=== PATIENT | female | born 1965 | race Caucasian/White ===

== ENCOUNTER 2022-07-29 07:43 | Day surgery (SDC) | payer OTHER ==
[2022-07-29] VITALS (9 sets, daily range): BP systolic 131–149; BP diastolic 81–93
[~2022-07-29] VITALS: Ht 162.6 cm; Wt 77.4 kg
[~2022-07-29 07:43] MED LIST: ALBU8HFA INH; BECL10.62 INH; BUPR300T86 PO; ESTR1TAB28 PO; FINA1TAB17 PO; PROG100C11 PO; famotidine 20mg tablet PO ONE; oxymetazoline 15 ML nasal spray NS ONE; ringers solution, lacted 1,000 ML IV SCH; tranexamic acid inj. 1,000 MG in normal saline IV soln 100ML IV ONE
[2022-07-29] MEDS ORDERED: fentaNYL/PF 50MCG/1 ML 2ML syringe ONE ×2 (09:00→10:07)
[2022-07-29] MEDS ORDERED: salt irrigation nasal spray 45 ML SPRAY NS ONE (09:00)
[2022-07-29] MEDS ORDERED: midazolam 1 mg/ML 2ml injection ONE (09:01)
[2022-07-29] MEDS ORDERED: sevoflurane 250ml liquid IH ONE (09:07)
[2022-07-29] MEDS ORDERED: ondansetron/PF 4mg/2ml inj IV PRN (09:10)
[2022-07-29] MEDS ORDERED: ringers solution, lacted 1,000 ML IV SCH (09:10)
[2022-07-29] MEDS ORDERED: morphine 2 MG/ML inj. syringe IV PRN (09:10)
[2022-07-29] MEDS ORDERED: meperidine/PF 25mg/ml syringe IV PRN ×3 (09:10)
[2022-07-29] MEDS ORDERED: morphine 4 MG/ML inj SYRINge IV PRN (09:10)
[2022-07-29] MEDS ORDERED: proCHLORperazine 10 MG/2 ml inj IV PRN (09:10)
[2022-07-29] MEDS ORDERED: cocaine 4% topical solution 4ml bottle TP ONE (09:40)
[2022-07-29] MEDS ORDERED: mupirocin 2% ointment 22GM TP ONE (09:42)
[2022-07-29] MEDS ORDERED: oxymetazoline 15 ML nasal spray NS ONE (09:43)
[2022-07-29] MEDS ORDERED: LIDOcaine 1% W/epiNEPHrine 1:100,000 20ml vial IJ ONE (09:44)
[2022-07-29] MEDS ORDERED: LIDOcaine 1% W/epiNEPHrine 1:100,000 20ml vial ONE (09:45)
[2022-07-29] MEDS ORDERED: LIDOcaine 2% (20mg/ml) 5ml vial ONE (10:31)
[2022-07-29] MEDS ORDERED: acetaminophen 1,000mg/100ml IV 100 ML IV ONE ×2 (10:31→10:32)
[2022-07-29] MEDS ORDERED: ondansetron/PF 4mg/2ml inj ONE (10:31)
[2022-07-29] MEDS ORDERED: dexamethasone sod phosphate 4mg/ml inj. ONE (10:31)
[2022-07-29] MEDS ORDERED: propofol inj 20 ML IV ONE (10:31)
[2022-07-29] MEDS ORDERED: meperidine/PF 25mg/ml syringe ONE (11:33)
--- NOTE | 2022-07-29 12:00 | NUR ---
Received from OR via [facility] , accompanied by Anesthesiologist DR MCCOY and report given by Anesthesiolgist. PT SLEEPING BUT AROUSABLE EASILY. COTTONOIDS CDI TO BILAT NARES. PT APPEARS TO BE RESTING COMFORTABLY.
[2022-07-29] MEDS ORDERED: tranexamic acid 100mg/ml inj. ONE (12:01)
[2022-07-29] MEDS ORDERED: labetalol 20mg/4ml (5mg/ml) syringe IV ONE (12:23)
--- NOTE | 2022-07-29 12:35 | NUR ---
COTTONOIDS DC'S PER MD ORDERS. PT TOLERATED WELL. NO DRAINAGE NOTED. ANUPAMA NASAL GTT DRSG APPLIED BELOW BIAT NARES. PT TOLERATING JUICE WELL. C/O SORE THROAT BUT DENIES SIGNIFICANT SINUS PAIN. NO BLEEDING.
[2022-07-29] MEDS ORDERED: salt irrigation nasal spray 45 ML SPRAY NS PRN (13:00)
--- NOTE | 2022-07-29 13:43 | NUR ---
PT UP TO RESTROOM . VOID X 1, QS. PT STATES SHE HAS NAUSEA AFTER USING RESTROOM. MEDICATED W/ ZOFRAN ORDERED.
--- NOTE | 2022-07-29 14:10 | NUR ---
PT WAS DISCHARGED SAFELY VIA W/C. INSTRUCTIONS REVIEWED W/ PT AND SIG OTHER AND BOTH STATE UNDERSTANDING. NO BLEEDING FROM NARES. VSS. NAUSEA SUBSIDED. PT TOLERATING JUICE AND SALTINE CRACKERS. PT STATES READINESS FOR DC TO HOME. PT STILL C/O SORE THROAT BUT STATES UNDERSTANDING REGARDING COMFORT MEASURES FOR SORE THROAT AND WANTS TO BE DISCHARGED TO HOME . ALL BELONGINGS W/ PT UPON DC TO HOME.
== END 2022-07-29 14:10 | disposition home or self-care (01) ==
LOC: PAS 07:43
PROVIDERS: ATTEND Otolaryngology
DX: J34.2 Deviated nasal septum (principal); J34.3 Hypertrophy of nasal turbinates; J32.8 Other chronic sinusitis; J33.8 Other polyp of sinus; J45.909 Unspecified asthma, uncomplicated; K21.9 Gastro-esophageal reflux disease without esophagitis; Z20.822 Contact with and (suspected) exposure to COVID-19; Z72.89 Other problems related to lifestyle; Z88.5 Allergy status to narcotic agent; Z98.890 Other specified postprocedural states; Z79.899 Other long term (current) drug therapy
CPT/HCPCS: 30140; 30520; 31259; 31267; 31276; 36415; 61782; 82948; 87102; 87635; 93005; A6402; C9803; J0131; J1100; J2175; J2250; J2405; J2704; J3010; J3490; J7030; J7050; J7120; U0003; U0005; Z7506; Z7508; Z7512; A4618; A6449; A7000

== ENCOUNTER 2024-06-24 13:51 | Outpatient (CLI) | payer OTHER ==
[~2024-06-24 13:51] MED LIST changes: +BUPR-564 PO; -BUPR300T86 PO; +FINA1TAB13 PO; -FINA1TAB17 PO; +barium sulfate 340gm for oral suspension 1 BOTTLE SUSP.RECON PO ONE; -famotidine 20mg tablet PO ONE; -oxymetazoline 15 ML nasal spray NS ONE; -ringers solution, lacted 1,000 ML IV SCH; -tranexamic acid inj. 1,000 MG in normal saline IV soln 100ML IV ONE
== END 2024-06-24 23:59 | disposition home or self-care (01) ==
LOC: RAD 13:51
PROVIDERS: ATTEND Surgery
DX: K21.9 Gastro-esophageal reflux disease without esophagitis (principal); K44.9 Diaphragmatic hernia without obstruction or gangrene
CPT/HCPCS: 74220

== ENCOUNTER 2024-07-28 06:09 | Observation (INO) | payer OTHER ==
[2024-07-21 15:23] LABS: BASOPHILS # (AUTO) 0.1 X10'3 (0-0.2); BASOPHILS % (AUTO) 1.3 % (0-1); EOSINOPHILS # (AUTO) 0.3 X10'3 (0-0.9); EOSINOPHILS % (AUTO) 3.6 % (0-6); LYMPHOCYTES # (AUTO) 2.3 X10'3 (1.1-4.8); LYMPHOCYTES % (AUTO) 33.2 % (21-51); MEAN CORPUSCULAR HEMOGLOBIN 28.7 PG (27.0-31.0); MEAN CORPUSCULAR HGB CONC 32.7 g/dL (33.0-36.5); MEAN CORPUSCULAR VOLUME 87.9 FL (78-98); MEAN PLATELET VOLUME 8.4 FL (7.4-10.4); MONOCYTES # (AUTO) 0.6 X10'3 (0-0.9); NEUTROPHILS # (AUTO) 3.7 X10'3 (1.8-7.7); NEUTROPHILS % (AUTO) 52.9 % (42-75); PRE OP HEMATOCRIT 43.5 % (35.0-45.0); PRE OP HEMOGLOBIN 14.2 g/dL (12.0-16.0); PRE OP PLATELET COUNT 243 X10'3 (140-440); PRE OP WHITE BLOOD COUNT 7.1 10'3 (4.8-10.8); RED BLOOD COUNT 4.95 X10'6 (4.20-5.60); RED CELL DISTRIBUTION WIDTH 13.6 % (11.5-14.5)
[2024-07-21 15:49] LABS: ALBUMIN 3.7 G/DL (3.4-5.0); ALBUMIN/GLOBULIN RATIO 1.1 (1.1-1.5); ALKALINE PHOSPHATASE 63 IU/L (46-116); BLOOD UREA NITROGEN 15 MG/DL (7-18); CALCIUM 8.8 MG/DL (8.5-10.1); CHLORIDE 105 MMOL/L (99-107); CREATININE 0.75 MG/DL (0.40-0.90); PRE OP ALT 28 U/L (30-65); PRE OP ANION GAP 9 (8-16); PRE OP AST 23 U/L (10-37); PRE OP BILIRUB, TOTAL 0.5 MG/DL (0.0-1.0); PRE OP GLUCOSE 98 MG/DL (70-104); PRE OP POTASSIUM 3.5 MMOL/L (3.4-5.1); PRE OP SODIUM 141 MMOL/L (135-145); TOTAL CARBON DIOXIDE 26.7 MMOL/L (24-32); TOTAL PROTEIN 7.1 G/DL (6.4-8.2); eGFR 80 ML/MIN
[~2024-07-28] VITALS: Ht 152.4 cm; Wt 79.5 kg
[2024-07-28] VITALS (27 sets, daily range): BP systolic 121–171; BP diastolic 64–100; PULSE 76–98; RESP 13–20; TEMP 97.4–97.9; O2SAT 91–100
[2024-07-28] MEDS: normal saline 1000ml 1,000 ML IV SCH (01:13)
[2024-07-28] MEDS: ceFAZolin 2gm in dextrose, iso 50 ML IV ONE (05:30)
[~2024-07-28 06:09] MED LIST changes: -BECL10.62 INH; +BIOTIN; +CHOLINE; +FLUT1AER PO; +MULT-1085 PO; +NIACIN; +OMEP40CA21 PO; +TUDCA; +VIT B3; +[UNRECOGNIZED DRUG - OTHER]; +albuterol 2.5 MG/3 ML nebule NEB PRN; -barium sulfate 340gm for oral suspension 1 BOTTLE SUSP.RECON PO ONE
[2024-07-28] MEDS ORDERED: LIDOcaine 1% 30ml preserv. free vial ONE (06:58)
[2024-07-28] MEDS ORDERED: BUPIVAcaine 2.5mg/ml inj 50ml vial (contains preservative) ONE (06:58)
[2024-07-28] MEDS: famotidine 20mg tablet PO ONE (07:00)
[2024-07-28] MEDS: ringers solution, lacted 1,000 ML IV SCH (07:15)
[2024-07-28] MEDS ORDERED: sevoflurane 250ml liquid IH ONE (07:22)
[2024-07-28] MEDS ORDERED: midazolam 1 mg/ML 2ml injection ONE (07:23)
[2024-07-28] MEDS ORDERED: fentaNYL/PF 50MCG/1 ML 2ML syringe ONE (07:23)
[2024-07-28] MEDS ORDERED: rocuronium 10mg/ml inj IV ONE (07:23)
[2024-07-28] MEDS ORDERED: propofol inj 20 ML IV ONE (07:23)
[2024-07-28] MEDS: BUPIVAcaine/PF 2.5 mg/ml (0.25%) 30ml vial IJ ONE (08:12)
[2024-07-28] MEDS ORDERED: dexamethasone sod phosphate 4mg/ml inj. ONE (09:05)
[2024-07-28] MEDS ORDERED: ondansetron/PF 4mg/2ml inj ONE (09:06)
[2024-07-28] MEDS ORDERED: labetalol 20mg/4ml (5mg/ml) syringe IV ONE (09:06)
[2024-07-28] MEDS ORDERED: acetaminophen 1,000mg/100ml IV 100 ML IV ONE (09:06)
[2024-07-28] MEDS ORDERED: sugammadex 200mg/2ml injection IV ONE (09:14)
[2024-07-28] MEDS ORDERED: ondansetron/PF 4mg/2ml inj IV PRN (09:20)
[2024-07-28] MEDS ORDERED: morphine 4 MG/ML inj SYRINge IV PRN (09:20)
[2024-07-28] MEDS ORDERED: morphine 2 MG/ML inj. syringe IV PRN (09:20)
[2024-07-28] MEDS ORDERED: ringers solution, lacted 1,000 ML IV SCH (09:20)
[2024-07-28] MEDS ORDERED: HYDROmorphone/PF 0.2 MG/ML SYRINGE IV PRN (09:20)
[2024-07-28] MEDS ORDERED: naloxone 0.4 mg/ml inj IV PRN (09:25)
[2024-07-28] MEDS ORDERED: ALBUTEROL INH PRN (09:30)
[2024-07-28] MEDS: labetalol 20mg/4ml (5mg/ml) syringe IV PRN (09:58)
[2024-07-28] MEDS: ketorolac trometh 30MG/ML vial 30 MG/ML VIAL IV ONE (09:58)
[2024-07-28] MEDS: HYDROmorphone/PF 0.2 MG/ML SYRINGE IV PRN (10:12)
[2024-07-28] MEDS ORDERED: albuterol 2.5 MG/3 ML nebule NEB SCH (11:00)
[2024-07-28] MEDS: HYDROmorph/NS 0.2 mg/ml PCA 100 ML IV SCH (11:00)
[2024-07-28] MEDS: potassium CL 20mEq in D5-1/2NS 1,000 ML IV SCH (17:05)
[2024-07-28] MEDS: FINASTERIDE 1 MG TABLET PO SCH (21:00)
[2024-07-28] MEDS: BREO ELLIPTA 100-25 MCG INH PO SCH (21:42)
[2024-07-28] MEDS: ondansetron/PF 4mg/2ml inj IV PRN (23:09)
[2024-07-29 02:00] VITALS: BP 119/65; PULSE 74; RESP 14; TEMP 97.8; O2SAT 94
[2024-07-29 05:00] VITALS: BP 131/71; PULSE 72; RESP 17; TEMP 97.7; O2SAT 96
[2024-07-29] MEDS: BUPROPION HCL 150MG XL 24 HR 150 MG TAB PO SCH (07:53)
[2024-07-29] MEDS: sennosides/docusate sodium tablet PO SCH (07:54)
[2024-07-29] MEDS ORDERED: oxyCODONE/APAP 5-325mg tablet PO PRN (09:00)
[2024-07-29] MEDS ORDERED: PER5325T PO (09:01)
[2024-07-29 10:00] VITALS: BP 113/67; PULSE 81; RESP 15; TEMP 98.2; O2SAT 94
[2024-07-29] MEDS: oxyCODONE/APAP 5-325mg tablet PO ONE (12:00)
[2024-07-29] MEDS: PCA WASTE DOCUMENTATION 1 MG ML MC SCH (14:09)
== END 2024-07-29 12:50 | disposition home or self-care (01) ==
LOC: PAS 06:09 → PAS IN 09:29 → ORTHO 4S 11:25
PROVIDERS: ADMIT Surgery; ATTEND Surgery
DX: K44.9 Diaphragmatic hernia without obstruction or gangrene (principal); K21.00 Gastro-esophageal reflux disease with esophagitis, without bleeding; K76.89 Other specified diseases of liver; L98.9 Disorder of the skin and subcutaneous tissue, unspecified; Z79.899 Other long term (current) drug therapy; Z88.5 Allergy status to narcotic agent
CPT/HCPCS: 11106; 36415; 43282; 71045; 80053; 82948; 85025; 87081; 93005; 96374; 96375; 96376; C1781; G0378; J0131; J0690; J1100; J1171; J1885; J2003; J2250; J2405; J2704; J3010; J3480; J3490; J7030; J7120; A4615; A4618